=== PATIENT | male | born 1960 | race Caucasian/White ===

== ENCOUNTER → 2016-07-21 | Outpatient (CLI) | payer BC ==
--- NOTE | 2016-07-21 13:30 | DIAGNOSTIC IMAGING REPORT ---
CT SCAN OF THE ABDOMEN AND PELVIS WITH IV CONTRAST CLINICAL HISTORY: Left lower quadrant abdominal pain. COMPARISON STUDY: No priors. TECHNIQUE: Following the IV administration of 94 cc of Optiray 320, CT scan of the abdomen and pelvis is performed from the lung bases to the proximal femora. Images are reviewed in the axial, sagittal, and coronal planes. IV contrast was administered without complication. Automated dose control exposure was utilized. CT DOSE: 312.91 mGy.cm FINDINGS: Lung bases: The heart is normal in size and without pericardial effusion. There is a trace left pleural effusion. The lung bases are otherwise clear. Liver: The contrast-enhanced liver is normal in size, contour, and attenuation. There is no intrahepatic biliary ductal dilatation. The hepatic veins and portal veins are patent. Gallbladder: Unremarkable. Spleen: Normal in size and attenuation. Pancreas: Unremarkable. Adrenal glands: Unremarkable. Kidneys: The contrast enhanced kidneys are normal in size and without hydronephrosis. The kidneys enhance symmetrically. Abdominal vasculature: The abdominal aorta is normal in course and caliber. Bowel: There are scattered colonic diverticula. There is a short segment segment of significant wall thickening/edema with associated pericolonic inflammation seen involving the descending colon. This extends approximate 6 cm in length and is best seen on axial image 273. No bowel obstruction is identified. The appendix is well-visualized and normal. Peritoneum: There is no intraperitoneal free air or abdominal ascites. There is a small fat-containing umbilical hernia. Lymphadenopathy: Enlarged mesenteric lymph nodes in the left lower quadrant as seen on image #224 and measures 11 mm in short axis. Pelvic viscera: The prostate gland is mildly enlarged and heterogeneous, measuring 5.3 cm in transverse diameter. The bladder wall appears slightly thickened and trabeculated . Skeletal structures: There is mild lumbosacral spondylosis. Disc bulges are identified at L4-L5 and L5-S1. No lytic or blastic lesions are seen. IMPRESSION: 1. There is an approximately 6 cm segment of the distal descending colon that is markedly thick-walled and edematous with associated pericolonic inflammatory change. Only scattered colonic diverticula are identified. This could represent a short segment/focal colitis or less likely diverticulitis. The appearance is somewhat atypical, and posttreatment follow-up with a colonoscopy is recommended to exclude the possibility of underlying colonic lesion. 2. An indeterminant and mildly enlarged left lower quadrant mesenteric lymph node is seen measuring up to 11 mm short axis. 3. There is no evidence of abscess. 4. Trace left pleural effusion. 5. The prostate gland is enlarged. The bladder wall appears mildly thickened and trabeculated, likely representing the sequelae of chronic bladder outlet obstruction. 6. Additional findings as above. Electronically signed by: Mike Mcfadden M.D. 07/21/2016 1:29 PM Dictated Date/Time: 07/21/2016 1:20 PM
== END | disposition home or self-care (01) ==
LOC: C.CTS 10:41
PROVIDERS: ATTEND Nurse Practitioner
DX: K57.92 Diverticulitis of intestine, part unspecified, without perforation or abscess without bleeding (principal); R59.0 Localized enlarged lymph nodes; N40.0 Benign prostatic hyperplasia without lower urinary tract symptoms; R93.41 Abnormal radiologic findings on diagnostic imaging of renal pelvis, ureter, or bladder

== ENCOUNTER → 2017-07-03 | Outpatient (CLI) | payer OTHER ==
--- NOTE | 2017-07-03 09:42 | DIAGNOSTIC IMAGING REPORT ---
ABDOMEN FOR HERNIA CLINICAL HISTORY: K40.90 Inguinal herniaRight [id number] hernia TECHNIQUE: Ultrasound COMPARISON STUDY: None FINDINGS: Reducible intermittent fat-containing right inguinal hernia. No evidence for bowel containment. This again is completely reducible. IMPRESSION: Reducible exclusively fat-containing right inguinal hernia. No evidence of bowel containment The above report was generated using voice recognition software. It may contain grammatical, syntax or spelling errors. Electronically signed by: Tacos Sanches M.D. 07/03/2017 9:40 AM Dictated Date/Time: 07/03/2017 9:39 AM
== END | disposition home or self-care (01) ==
LOC: C.ULTR 08:47
PROVIDERS: ATTEND Surgery
DX: K40.90 Unilateral inguinal hernia, without obstruction or gangrene, not specified as recurrent (principal)

== ENCOUNTER → 2017-08-27 | Day surgery (SDC) | payer OTHER ==
[2017-08-21 08:39] VITALS: Ht 182.9 cm; Wt 86.8 kg
--- NOTE | 2017-08-21 09:09 | PAT Medication Instructions ---
Service Date Aug 21, 2017. Current Home Medication List Aspirin (Aspirin Ec), 81 MG PO 3XWK Cholecalciferol (Vitamin D3), 1 TAB PO QAM Medication Instructions For Your Scheduled Surgery - Hold the following medications 7 days prior to surgery per your surgeon's instructions: Aspirin (Aspirin Ec), 81 MG PO 3XWK - Hold the following medications the morning of surgery: Cholecalciferol (Vitamin D3), 1 TAB PO QAM If you have any questions please call us at [phone] or [phone] or [phone]
[2017-08-21 11:15] LABS: BASO % 0.9 %; BASO ABS # 0.04 K/uL (0-0.2); EOS % 2.4 %; HEMATOCRIT 42.7 % (42-52); HEMOGLOBIN 14.7 g/dL (14.0-18.0); IG# 0.01 K/uL (0.00-0.02); LYMPH ABS # 1.44 K/uL (1.2-3.4); MEAN CORPUSCULAR HEMOGLOBIN 31.7 pg (25-34); MEAN CORPUSCULAR HGB CONC 34.4 g/dl (32-36); MEAN PLATELET VOLUME 11.1 fL (7.4-10.4); MONO % 7.1 %; NEUT % 55.4 %; NEUT ABS # 2.34 K/uL (1.4-6.5); PLATELET COUNT 132 K/uL (130-400); RED CELL DISTRIBUTION WIDTH CV 12.9 % (11.5-14.5); RED CELL DISTRIBUTION WIDTH SD 43.5 fL (36.4-46.3); WHITE BLOOD COUNT 4.23 K/uL (4.8-10.8)
[2017-08-21 11:31] LABS: CALCIUM 8.9 mg/dl (8.5-10.1); CREATININE 0.78 mg/dl (0.60-1.40)
[~2017-08-27] VITALS: Ht 182.9 cm; Wt 86.8 kg
[~2017-08-27] MED LIST: ACETAMINOPHEN 1000 MG/100 ML IV IV ONE; ASPI81TA28 PO; ATROPINE SULFATE 0.1 MG/ML 5ML SYR IV PRN; BUPIVACAINE/EPINEPHRINE 0.5% MPF 1:200,000 30 ML VIAL ONE; CEFAZOLIN 2000MG IV PUSH 15 ML IV SCH; CHOL1000 PO; DEXAMETHASONE SOD INJ 4 MG/ML VIAL ONE; EpHEDrine SULFATE INJ 50 MG/ML AMP IV PRN; FENTANYL CITRATE INJ 50 MCG/1 ML 2 ML VIAL IV PRN; FENTANYL CITRATE INJ 50 MCG/1 ML 2 ML VIAL ONE; GLYCOPYRROLATE INJ 0.2 MG/ML VIAL ONE; HYDR-5688 PO; HYDROCODONE/ACETAMIN 5/325MG TAB PO PRN; HYDROmorphone INJ 1 MG/ML SYR IV PRN; IBUPROFEN 600 MG TAB PO PRN; KETOROLAC TROMETHAMINE 30 MG/ML VIAL ONE; LACTATED RINGER'S 1000ML 1,000 ML IV SCH; LIDOCAINE HCL 2% 2 ML VIAL (20MG/ML) ONE; MIDAZOLAM HCL 1 MG/ML 2ML VIAL ONE; NEOSTIGMINE METHYLSULFATE 5 MG/5 ML SYR ONE; ONDANSETRON INJ 2 MG/ML 2 ML VIAL IV PRN; ONDANSETRON INJ 2 MG/ML 2 ML VIAL ONE; PROPOFOL IV EMULSION 10 MG/ML 20 ML VIAL IV ONE; ROCURONIUM BROMIDE 10 MG/ML 5 ML VIAL IV ONE; SODIUM CHLORIDE 0.9% 1000ML 1,000 ML IV SCH
[2017-08-27 07:38] VITALS: BP 141/86; PULSE 61; TEMP 36.9; O2SAT 96
--- NOTE | 2017-08-27 07:58 | History & Physical Bridge Note ---
H&P Re-Evaluation Bridge Note: I have examined the patient, reviewed the History & Physical and in the interval since the performance of the History & Physical I have noted the following changes of clinical significance: No changes noted
--- NOTE | 2017-08-27 10:37 | [facility] Post Operative Brief Note ---
Immediate Operative Summary Operative Date Aug 27, 2017. Pre-Operative Diagnosis Bilateral Inguinal Hernias, Epigastric Hernia Post-Operative Diagnosis Bilateral Inguinal Hernias, Epigastric Hernia; umbilical hernia Procedure(s) Performed Open Bilateral Inguinal Hernia Repair with Mesh, Open Epigastric Hernia Repair, and Open Umbilical Hernia Repair Surgeon Dr. Gentry Toledo Bingo Manager Surgeon(s) Gonzales Gaona PA-C Estimated Blood Loss 15ml Findings Consistent with Post-Op Diagnosis Specimens none per surgeon Dr. Randy Toledo Anesthesia Type General
--- NOTE | 2017-08-27 10:47 | Discharge Instructions ---
Discharge Instructions Date of Service Aug 27, 2017. Visit Reason for Visit: Bilateral Inguinal Hernias, Epigastric Hernia Discharge Discharge Diagnosis / Problem: Bilateral inguinal hernias, epigastric hernia Discharge Goals Goal(s): Decrease discomfort, Improve function Activity Recommendations Activity Limitations: as noted below Lifting Limitations: no more than 10 pounds, until after follow-up appointment Exercise/Sports Limitations: until after follow-up appointment May Resume Sexual Activity: after follow-up appointment Shower/Bathe: tomorrow Driving or Machine Use: resume 3 days after discharge (Please do not drive while using narcotic pain medication) Anesthesia . Post Anesthesia Instructions: If you have had General Anesthesia or IV Sedation: * Do not drive today. * Resume driving when surgeon permits. * Do not make important decisions or sign legal documents today. * Call surgeon for: 1. Temperature elevations greater than 101 degrees F. 2. Uncontrollable pain. 3. Excessive bleeding. 4. Persistent nausea and vomiting. 5. Medication intolerance (nausea, vomiting or rash). * For nausea and vomiting use only clear liquids such as: tea, soda, bouillon until nausea subsides, then gradually increase diet as tolerated. * If you have any concerns or questions, call your surgeon's office. If physician is unavailable and it is an emergency, call 911 or go to the nearest emergency room. . Instructions / Follow-Up Instructions / Follow-Up You have surgical glue covering your incision sites. Please allow this to fall off on its own. You have been prescribed Mcadoo to take as needed for pain relief. You may alternate this with Ibuprofen as well for better pain relief. You may ice your hernia incision sites as needed to help reduce pain and swelling. Please follow-up with Dr. Toledo in 1-2 weeks. Contact our office at to schedule an appointment if you have not done so already. Please contact our office with any further questions or concerns. [facility] [address] [place] [address]. Diet Recommendations Recommended Home Diet: no limitations, resume previous diet Procedures Procedures Performed: Open Bilateral Inguinal Hernia Repair with Mesh, Open Epigastric Hernia Repair, and Open Umbilical Hernia Repair Pending Studies Studies pending at discharge: no Medical Emergencies . Who to Call and When: Medical Emergencies: If at any time you feel your situation is an emergency, please call 911 immediately. . Non-Emergent Contact Non-Emergency issues call your: Primary Care Provider, Surgeon Call Non-Emergent contact if: you have a fever, temperature is above 101.5, your pain is not controlled, your pain is worsening, wound has increased drainage, wound has increased redness, you have any medication questions . . "Provider Documentation" section prepared by Gonzales Gaona. . [place] Drug Monitoring Program Search Results: patient reviewed within database, no issues identified
--- NOTE | 2017-08-27 11:18 | Anesthesiology Progress Note ---
Anesthesia Post Op Note Date & Time Aug 27, 2017 at 11:18 Vital Signs Pain Intensity: 4 Vital Signs Past 12 Hours Date Time Temp Pulse Resp B/P (MAP) Pulse Ox O2 Delivery O2 Flow Rate FiO2 08/27/17 11:07 60 16 98 08/27/17 11:07 60 16 08/27/17 11:06 128/78 08/27/17 11:02 59 16 100 08/27/17 11:02 62 16 08/27/17 11:01 126/83 08/27/17 10:57 69 15 08/27/17 10:57 69 15 100 08/27/17 10:56 131/74 08/27/17 10:52 70 16 100 08/27/17 10:52 69 16 08/27/17 10:51 129/75 08/27/17 10:47 71 16 08/27/17 10:47 36.8 73 13 132/67 100 Oxymask 10 08/27/17 10:47 70 16 132/67 100 08/27/17 07:38 36.9 61 18 141/86 (104) 96 Room Air Notes Mental Status: alert / awake / arousable, participated in evaluation Pt Amnestic to Procedure: Yes Nausea / Vomiting: adequately controlled Pain: adequately controlled Airway Patency, RR, SpO2: stable & adequate BP & HR: stable & adequate Hydration State: stable & adequate Anesthetic Complications: no major complications apparent
[2017-08-27 11:30] VITALS: BP 134/80; PULSE 57; TEMP 36.7; O2SAT 97
[2017-08-27 11:59] VITALS: BP 138/82; PULSE 60; O2SAT 98
[2017-08-27 12:30] VITALS: BP 142/85; PULSE 66; TEMP 36.6; O2SAT 99
[2017-08-27 13:01] VITALS: BP 145/85; PULSE 68; TEMP 36.6; O2SAT 97
--- NOTE | 2017-08-27 13:55 | [facility] Operative Report ---
Operative Report Operative Date Aug 27, 2017. Pre-Operative Diagnosis Bilateral Inguinal Hernias, Epigastric Hernia Post-Operative Diagnosis Bilateral Inguinal Hernias, Epigastric Hernia; umbilical hernia Procedure(s) Performed Open Bilateral Inguinal Hernia Repair with Mesh, Open Epigastric Hernia Repair, and Open Umbilical Hernia Repair Surgeon Dr. Gentry Toledo Space Technologist Surgeon(s) Gonzales Gaona PA-C Estimated Blood Loss 15ml Specimens none per surgeon Dr. Randy Toledo Anesthesia Type General Disposition Recovery Room / PACU Description of Procedure After informed consent was obtained the patient was taken to the operating room and placed in supine position. After successful placement of the laryngeal mask airway the abdomen was shaved and sterilely prepped draped in usual fashion. I began in the umbilical region. I made a supraumbilical incision with a 15 blade scalpel and carried this down through the soft tissue using electrocautery. We carried this down to the fascia where the patient was noted to have a small 1-1-1/2 cm epigastric hernia. I came around the inferior aspect of the umbilicus with a Aleksandra clamp and took down the umbilical stalk which also revealed a small 1 cm umbilical hernia. Neither one was large enough to warrant mesh. I used an 0 Ethibond in interrupted [id number] fashion to primarily close both defects. I then thoroughly irrigated the wound. I re-placed the umbilicus to the fascia using 0 Vicryl interrupted fashion. I then closed the deep layers using 3-0 Vicryl and the skin using 4-0 Monocryl, my attention then turned to the right lower groin hernia. I made an incision with a fresh blade in the inguinal region. This was carried down through the soft tissue using electrocautery. The external oblique aponeurosis was skeletonized. I opened it with a new blade and extended this inferiorly using a Metzenbaum scissor through the external ring as well as for several centimeters proximally. Once in the inguinal canal I was able to tease the cord and cord structures off the pubic bone using blunt finger dissection. This immediately revealed a large direct inguinal hernia. I then inspected the cord and cord structures using blunt dissection and small amounts of electrocautery. I did find a garden-variety indirect hernia as well. I was able to tease this off the cord using small amounts of electrocautery down to its neck. I was then able to dunk this into the abdominal cavity where it stayed on its own. Because of the large size of the direct hernia I decided to use a plug and patch polypropylene technique. I placed the polypropylene plug into the defect and secured it using 0 Ethibond to the midline musculature medially and the shelving portion of Poupart ligament laterally. I then used a keyhole piece of polypropylene as an onlay. I secured this to Eron's ligament distally the shelving portion of Poupart's ligament laterally in the midline musculature medially. The "arms" wrapped around behind the cord and cord structures and again secured underlying muscle. At the end of the procedure there was adequate hemostasis. The mesh laid nice and tension-free and did not appear to impinge on the cord. I did inject the edges of the mesh with Marcaine solution for postoperative analgesia. A thorough irrigation was performed. The external oblique aponeurosis was then closed with 2-0 Vicryl running fashion. Soft tissue was irrigated and closed using 3-0 Vicryl for the deep layers and 4-0 Monocryl for the skin. Some additional Marcaine was injected around this incision and skin glue used as a dressing Finally we went to the left groin. A new blade was used to make an incision from the pubic bone laterally. Again we carried this down through the soft tissue using electrocautery and skeletonized the external oblique aponeurosis. A new blade was used to make a small opening and Metzenbaum scissors were used to extend this distally through the external ring as well as for several centimeters proximally. Again once in the inguinal canal I teased the cord and cord structures off the pubic bone and placed a Jaleesa around them. There is a small direct hernia present. Again when we examined the cord structures there was also a small indirect hernia. Using blunt dissection and small amounts of cautery we were again able to tease the cord and sac off the cord structures back to its neck. Again we were able to dunk this easily into the abdominal cavity where it stayed reduced. I did not feel a plug would be needed for the small direct hernia on this side. I used a simple keyholed polypropylene mesh as an onlay. Again I secured this distally to Eron's ligament laterally along the shelving portion of Poupart's ligament and medially along the midline musculature. Again the arms of the mesh were wrapped around behind the cord structures and secured underlying muscle. There was no cord impingement and adequate hemostasis. We injected the edges of the mesh again with Marcaine. Thorough irrigation was performed and there was adequate hemostasis. The external oblique aponeurosis was closed using 2-0 Vicryl in a running fashion. Soft tissue was irrigated and closed using 3-0 Vicryl. Skin was closed using 4-0 Monocryl in running fashion. Some additional Marcaine and skin glue were used as a dressing. The patient was awaken extubated and transferred to recovery in stable condition. In summary there was an epigastric hernia and umbilical hernia a direct and indirect right internal hernia and a direct and indirect left inguinal hernia. My physician medical technician assistant was present throughout the entire case. He helped prep the patient. He helped with wound retraction/exposure throughout the case. He also helped with wound closure and dressing placement. I attest to the content of the Intraoperative Record and any orders documented therein. Any exceptions are noted below.
== END | disposition home or self-care (01) ==
LOC: C.ACU 06:51
PROVIDERS: ATTEND Surgery
DX: K40.20 Bilateral inguinal hernia, without obstruction or gangrene, not specified as recurrent (principal); K43.9 Ventral hernia without obstruction or gangrene; K42.9 Umbilical hernia without obstruction or gangrene; Z79.82 Long term (current) use of aspirin; Z80.0 Family history of malignant neoplasm of digestive organs

== ENCOUNTER → 2018-01-11 | Outpatient (CLI) | payer OTHER ==
[~2018-01-11] MED LIST changes: -ACETAMINOPHEN 1000 MG/100 ML IV IV ONE; -ATROPINE SULFATE 0.1 MG/ML 5ML SYR IV PRN; -BUPIVACAINE/EPINEPHRINE 0.5% MPF 1:200,000 30 ML VIAL ONE; -CEFAZOLIN 2000MG IV PUSH 15 ML IV SCH; -DEXAMETHASONE SOD INJ 4 MG/ML VIAL ONE; -EpHEDrine SULFATE INJ 50 MG/ML AMP IV PRN; -FENTANYL CITRATE INJ 50 MCG/1 ML 2 ML VIAL IV PRN; -FENTANYL CITRATE INJ 50 MCG/1 ML 2 ML VIAL ONE; -GLYCOPYRROLATE INJ 0.2 MG/ML VIAL ONE; -HYDR-5688 PO; -HYDROCODONE/ACETAMIN 5/325MG TAB PO PRN; -HYDROmorphone INJ 1 MG/ML SYR IV PRN; -IBUPROFEN 600 MG TAB PO PRN; -KETOROLAC TROMETHAMINE 30 MG/ML VIAL ONE; -LACTATED RINGER'S 1000ML 1,000 ML IV SCH; -LIDOCAINE HCL 2% 2 ML VIAL (20MG/ML) ONE; -MIDAZOLAM HCL 1 MG/ML 2ML VIAL ONE; -NEOSTIGMINE METHYLSULFATE 5 MG/5 ML SYR ONE; -ONDANSETRON INJ 2 MG/ML 2 ML VIAL IV PRN; -ONDANSETRON INJ 2 MG/ML 2 ML VIAL ONE; -PROPOFOL IV EMULSION 10 MG/ML 20 ML VIAL IV ONE; -ROCURONIUM BROMIDE 10 MG/ML 5 ML VIAL IV ONE; -SODIUM CHLORIDE 0.9% 1000ML 1,000 ML IV SCH
== END | disposition home or self-care (01) ==
LOC: C.PATHSPEC 17:10
PROVIDERS: ATTEND Urology
DX: R31.9 Hematuria, unspecified (principal)